=== PATIENT | male | born 1960 ===

== ENCOUNTER 2019-02-24 15:36 | Emergency (ER) | payer SELFPAY ==
[2019-02-24 15:38] VITALS: BMI 27.4
[2019-02-24 15:40] VITALS: RESP 16
--- NOTE | 2019-02-24 16:29 | C.PDOC ---
History Of Present Illness 54 year old male presents to the ED [facility] and [employer] for public intoxication. As per EMS, patient was exposing himself to pedestrians walking on sidewalk. Initially upon arrival, patient was awake, disruptive, and refusing to give any information. Patient was ambulating on two feet and was able to redress himself. Ultimately, patient fell asleep. There are no indications of head trauma, vomiting, or any other complaints. No SI/HI. HPI limited due to patient's intoxicated condition. Time Seen by Provider: 02/24/19 15:42 Chief Complaint (Nursing): Substance Abuse History Per: Patient, EMS, Other ([employer]) History/Exam Limitations: intoxication Onset/Duration Of Symptoms: Hrs Current Symptoms Are (Timing): Still Present Suicide/Self Injury Attempted (Context): None Modifying Factor(s): Alcohol Past Medical History Reviewed: Historical Data, Nursing Documentation, Vital Signs Vital Signs: Last Vital Signs Temp 99.0 F 02/24/19 15:37 Pulse 100 H 02/24/19 15:37 Resp 16 02/24/19 15:37 BP 170/89 H 02/24/19 15:37 Pulse Ox 96 02/24/19 15:37 - Medical History PMH: No Chronic Diseases Surgical History: No Surg Hx Family History: States: No Known Family Hx - Social History Hx Alcohol Use: Yes Hx Substance Use: No - Immunization History Hx Tetanus Toxoid Vaccination: No Hx Influenza Vaccination: No Hx Pneumococcal Vaccination: No Review Of Systems Review Of Systems: ROS cannot be obtained secondary to pt's inabilty to answer questions. Physical Exam - Physical Exam Appears: Non-toxic Skin: Warm, Dry, No Rash Head: Atraumatic, Normacephalic Eye(s): bilateral: Normal Inspection Nose: Normal Oral Mucosa: Moist Neck: Supple Chest: Symmetrical Cardiovascular: Rhythm Regular Respiratory: Normal Breath Sounds, No Rales, No Rhonchi, No Wheezing Gastrointestinal/Abdominal: Soft, No Tenderness Neurological/Psych: Oriented x3, Normal Speech, Normal Cognition Gait: Steady ED Course And Treatment O2 Sat by Pulse Oximetry: 96 (RA) Pulse Ox Interpretation: Normal Medical Decision Making Medical Decision Making: Impression: public intoxication Plan - Glucose POC Patient woke up. Denies any physical complaints. He is now ambulatory without difficulty and agitated. He states he wants to go home. He expressed he wants to take a taxi. Patient is stable for discharge. Disposition - Disposition Disposition: HOME/ ROUTINE Disposition Time: 18:52 Condition: STABLE Instructions: Alcohol Abuse and Alcoholism (DC) Forms: [facility] (Eritrean), Gen Discharge Inst Eritrean - POA Present On Arrival: None - Clinical Impression Clinical Impression: Alcohol abuse - Scribe Statement The provider has reviewed the documentation as recorded by the Scribe Stacie Wood All medical record entries made by the Isidra were at my direction and personally dictated by me. I have reviewed the chart and agree that the record accurately reflects my personal performance of the history, physical exam, medical decision making, and the department course for this patient. I have also personally directed, reviewed, and agree with the discharge instructions and disposition.
[2019-02-24 18:56] VITALS: BP 165/84; PULSE 89; TEMP 97.8
[2019-02-24 19:36] VITALS: O2SAT 96
== END 2019-02-24 18:59 | disposition home or self-care (01) ==
LOC: C.ER 15:36 → EDBD 15:36 → C.ER 18:59
DX: F10.10 Alcohol abuse, uncomplicated (principal); Y90.9 Presence of alcohol in blood, level not specified

== ENCOUNTER 2019-03-02 18:24 | Emergency (ER) | payer SELFPAY ==
[2019-03-02 18:25] VITALS: BMI 27.4
[2019-03-02 19:41] VITALS: TEMP 98.4
--- NOTE | 2019-03-02 22:44 | C.PDOC ---
History Of Present Illness 58-year-old male is brought to the ED by ambulance for evaluation after being found publicly intoxicated prior to arrival. Patient is a well-known homeless alcoholic. He does not offer any physical complaints and shows no signs of injuries at this time. Time Seen by Provider: 03/02/19 19:04 Chief Complaint (Nursing): Substance Abuse History Per: Family History/Exam Limitations: intoxication Onset/Duration Of Symptoms: Hrs Current Symptoms Are (Timing): Still Present Suicide/Self Injury Attempted (Context): None Modifying Factor(s): Alcohol Associated Symptoms: denies: Suicidal Thoughts, Suicidal Plan Involuntary Hold By: None Recent travel outside of the [place]: No Additional History Per: Patient Past Medical History Reviewed: Historical Data, Nursing Documentation, Vital Signs Vital Signs: Last Vital Signs Temp 98.4 F 03/02/19 19:20 Pulse 101 H 03/02/19 21:18 Resp 22 03/02/19 21:18 BP 146/92 H 03/02/19 21:18 Pulse Ox 94 L 03/02/19 21:18 Primary Care Provider: FAMILY PROVIDER,NO - Medical History PMH: No Chronic Diseases Surgical History: No Surg Hx Family History: States: Unknown Family Hx - Social History Hx Alcohol Use: Yes Hx Substance Use: No - Immunization History Hx Tetanus Toxoid Vaccination: No Hx Influenza Vaccination: No Hx Pneumococcal Vaccination: No Review Of Systems Psych: Positive for: Other (Et[place] intoxication ) Physical Exam - Physical Exam Appears: Non-toxic, No Acute Distress, Other (visibly intoxicated, stuperous ) Skin: Normal Color, Warm, Dry Head: Atraumatic, Normacephalic Eye(s): bilateral: Normal Inspection Oral Mucosa: Moist, Other (alcohol on breath ) Neck: Supple Chest: Symmetrical, No Deformity Respiratory: No Accessory Muscle Use Extremity: Normal ROM Neurological/Psych: Other (arousable to touch and verbal stimuli ) ED Course And Treatment O2 Sat by Pulse Oximetry: 94 Reevaluation Time: 00:33 Reassessment Condition: Improved (after >6 hours in ED clinically sober, argumentative.) Medical Decision Making Medical Decision Making: alcohol abuse ? homeless Disposition Doctor Will See Patient In The: Office Counseled Patient/Family Regarding: Studies Performed, Diagnosis - Disposition Disposition: HOME/ ROUTINE Disposition Time: 00:34 Condition: GOOD Forms: [facility] (Sierra Leonean) - Clinical Impression Clinical Impression: Alcohol abuse - Scribe Statement The provider has reviewed the documentation as recorded by the Scribe (Rabia Martinez) Provider Attestation: All medical record entries made by the Scribe were at my direction and personally dictated by me. I have reviewed the chart and agree that the record accurately reflects my personal performance of the history, physical exam, medical decision making, and the department course for this patient. I have also personally directed, reviewed, and agree with the discharge instructions and disposition.
[2019-03-03 03:00] VITALS: O2SAT 95
[2019-03-03 03:50] VITALS: BP 137/73; PULSE 93; RESP 18
== END 2019-03-03 03:45 | disposition home or self-care (01) ==
LOC: C.ER 18:24
DX: F10.10 Alcohol abuse, uncomplicated (principal); Y90.9 Presence of alcohol in blood, level not specified

== ENCOUNTER 2019-03-04 16:05 | Emergency (ER) | payer SELFPAY ==
[2019-03-04 16:05] VITALS: BMI 27.4
[2019-03-04 16:24] VITALS: RESP 16
--- NOTE | 2019-03-04 16:34 | C.PDOC ---
History Of Present Illness 58 year old male brought via BLS for public intoxication. Patient is intoxicated and refuses to answer any questions. Patient currently has no physical complaints. <TatyanaSalbador - Last Filed: 03/05/19 13:30> <Meghan Fishman - Last Filed: 03/04/19 19:54> History Per: EMS History/Exam Limitations: intoxication Onset/Duration Of Symptoms: Unknown Current Symptoms Are (Timing): Still Present Suicide/Self Injury Attempted (Context): None Modifying Factor(s): Alcohol Associated Symptoms: denies: Suicidal Thoughts, Suicidal Plan <Salbador Joe - Last Filed: 03/05/19 13:30> Time Seen by Provider: 03/04/19 16:34 Chief Complaint (Nursing): Substance Abuse Past Medical History Vital Signs: Last Vital Signs Temp 98 F 03/04/19 16:21 Pulse 104 H 03/04/19 16:21 Resp 16 03/04/19 16:21 BP 150/90 03/04/19 16:21 Pulse Ox 95 03/04/19 18:21 <Meghan Fishman - Last Filed: 03/04/19 19:54> Reviewed: Historical Data, Nursing Documentation, Vital Signs Vital Signs: Last Vital Signs Temp 98 F 03/04/19 16:21 Pulse 104 H 03/04/19 16:21 Resp 16 03/04/19 16:21 BP 150/90 03/04/19 16:21 Pulse Ox 95 03/04/19 16:21 Primary Care Provider: FAMILY PROVIDER,NO Family History: States: Unknown Family Hx - Social History Hx Alcohol Use: Yes Hx Substance Use: No - Immunization History Hx Tetanus Toxoid Vaccination: No Hx Influenza Vaccination: No Hx Pneumococcal Vaccination: No <Salbador Joe - Last Filed: 03/05/19 13:30> Review Of Systems Review Of Systems: ROS cannot be obtained secondary to pt's inabilty to answer questions. (patient intoxicated) <TatyanaSalbador - Last Filed: 03/05/19 13:30> Physical Exam - Physical Exam Appears: Non-toxic, No Acute Distress, Other (alcohol on breath, not answering questions) Skin: Warm, Dry Head: Atraumatic, Normacephalic Eye(s): bilateral: Normal Inspection, PERRL, EOMI Oral Mucosa: Moist Neck: Normal ROM, Trachea Midline, No Midline Cervical Tenderness, Supple, No Other (meningeal signs- negative kernig's and brudzinskis) Chest: Symmetrical, No Deformity, No Tenderness Cardiovascular: Rhythm Regular, No Murmur Respiratory: Normal Breath Sounds, No Accessory Muscle Use, No Rales, No Rho nchi, No Wheezing Gastrointestinal/Abdominal: Normal Exam, Soft, No Tenderness Back: Normal Inspection, No CVA Tenderness, No Vertebral Tenderness Extremity: Bilateral: Atraumatic, Normal Color And Temperature, Normal ROM Neurological/Psych: Other (intoxicated, awake, uncooperative) <Salbador Joe - Last Filed: 03/05/19 13:30> ED Course And Treatment Pulse Ox Interpretation: Normal Reevaluation Time: 19:54 Reassessment Condition: Improved <Meghan Fishman - Last Filed: 03/04/19 19:54> O2 Sat by Pulse Oximetry: 95 (in RA) Pulse Ox Interpretation: Normal <Salbador Joe - Last Filed: 03/05/19 13:30> Medical Decision Making Medical Decision Making: Impression: 58 year old male brought via BLS for public intoxication. Patient is intoxicated and refuses to answer any questions. Initial Plan: Glucose POC no signs of trauma on exam [address] Fishman pending clinical sobreity, final dispo pt in NAD <TatyanaSalbador - Last Filed: 03/05/19 13:30> Disposition Counseled Patient/Family Regarding: Studies Performed, Diagnosis, Need For Followup <Meghan Fishman - Last Filed: 03/04/19 19:54> - Disposition Disposition Time: 19:00 <TatyanaSalbador - Last Filed: 03/05/19 13:30> - Disposition Referrals: [facility] [Outside] Disposition: HOME/ ROUTINE Condition: STABLE Instructions: Alcohol Abuse and Alcoholism (DC) Forms: [email or web address] (Maldivian) - Clinical Impression Clinical Impression: Alcohol abuse, Alcohol intoxication - Scribe Statement The provider has reviewed the documentation as recorded by the Scribe (Carla Davies) All medical record entries made by the Scribe were at my direction and personally dictated by me. I have reviewed the chart and agree that the record accurately reflects my personal performance of the history, physical exam, medical decision making, and the department course for this patient. I have also personally directed, reviewed, and agree with the discharge instructions and disposition. <Salbador Joe - Last Filed: 03/05/19 13:30>
[2019-03-04 19:59] VITALS: BP 138/82; PULSE 90; TEMP 98.2
[2019-03-05 13:30] VITALS: O2SAT 95
== END 2019-03-04 20:00 | disposition home or self-care (01) ==
LOC: C.ER 16:05
DX: F10.129 Alcohol abuse with intoxication, unspecified (principal)